=== PATIENT | female | born 1970 | race Caucasian/White ===

== ENCOUNTER 2018-11-17 05:58 | Emergency (ER) | payer OTHER ==
[~2018-11-17] VITALS: Ht 154.9 cm; Wt 83.9 kg
[~2018-11-17 05:58] MED LIST: AZITHROMYCIN250 MG PO; AZULFIDINE500 MG PO; BACTRIM DS TAB1 EACH PO; BENTYL 10 MG CA10 M1 PO; BUTALB-APAP-CA1 EACH PO; CELEXA40 MG PO; HYDROXYCHLOROQ200 M1 PO; KEFLEX500 M1 PO; KINERET100 MG/0.6 SUBQ; METHOTREXATE 22.5 MG PO; MOBIC7.5 MG PO; NEURONTIN 300M300 M2 PO; PERCOCET 5-3251 EACH PO; PREDNISONE 20 M20 M1 PO; PREDNISONE50 MG PO; PROAIR HFA8.5 GM INH; PROTONIX 20 MG20 MG; TUSSIONEX PENN115 ML PO; ZOFRAN ODT4 MG SUBLING
[2018-11-17 06:05] VITALS: BP 150/96
[2018-11-17] MEDS ORDERED: NEURONTIN 300M300 M2 PO (06:35)
[2018-11-17] MEDS ORDERED: PREDNISONE 20 M20 MG PO (06:35)
[2018-11-17] MEDS ORDERED: PROTONIX 20 MG20 MG PO (06:35)
[2018-11-17] MEDS ORDERED: MOBIC7.5 MG PO (06:35)
== END 2018-11-17 06:43 | disposition home or self-care (01) ==
LOC: ER 05:58
DX: R05 Cough (principal); R06.02 Shortness of breath; I10 Essential (primary) hypertension; M79.7 Fibromyalgia; F17.210 Nicotine dependence, cigarettes, uncomplicated; Z88.0 Allergy status to penicillin; Z88.5 Allergy status to narcotic agent

== ENCOUNTER 2021-04-29 18:32 | Inpatient (IN) | payer OTHER ==
[~2021-04-29] VITALS: Ht 162.6 cm; Wt 88.5 kg
--- NOTE | ~2021-04-29 | EMS ---
[facility] [address] [place] [address] EMS Patient Care Report Name: JAVI WHITMORE Room #: 356-P ADM IN M.R.#: [id number] Admission: 04/29/21 Attend Phys: Tessy Logan MD Discharge: Date of : 74 Report #: [id number] THIS REPORT FOR: //name// Report Transmitted: 05/01/2021 11:18 EMS Care Summary [place], [place]/[facility] Incident [id number] @ 04/29/2021 18:04 Incident Location [address] [address] Patient JAVI WHITMORE Female, 50 Years 1970 Patient Address Patient History Other,Novel Coronavirus (COVID-19), Patient Allergies Codeine,Penicillin allergy,Morphine, Patient Medications Losartan, Propranolol, Pantoprazole, Gabapentin, Chief Complaint COVID Disposition Transported No Lights/[place] Dispatch Reason Breathing Problem Transported To [facility] Narrative RESPONDED TO BREATHING PROBLEMS AT APARTMENT. UPON ARRIVAL PT FOUND SITTING ON OUTSIDE STEPS ALERT AND ORIENTED. PT REPORTS TESTING POSITIVE FOR COVID ON WEDNESDAY BUT HAS BEEN NAUSEATED WITH VOMITING SINCE WEDNESDAY. PT REPORTS SOME SOA WHEN EXERTING HERSELF BUT MOVES AIR EFFECTIVELY. PT WALKED TO COT AND SEATBELTS APPLIED. PT VITALS OBTAINED. PT TRANSPORTED TO [facility] WITH NO [facility] [address] [place] [address] EMS Patient Care Report Name: JAVI WHITMORE Room #: 356-P ADM IN M.R.#: [id number] Admission: 04/29/21 Attend Phys: Tessy Logan MD Discharge: Date of : 74 Report #: [id number] CHANGES. PT SCOOTED TO BED AND HANDRAILS UP. REPORT GIVEN TO NURSE. Initial Vitals @18:22P: 103,R: 20,BP: 131/78,CO: 8,SpO2: 95, @18:18P: 105,R: 20,BP: 134/71,Pain: 0/10,GCS: 15,CO: 8,SpO2: 97,Revised Trauma: 12, Assessments @18:23MENTAL:Person Oriented,Time Oriented,Place Oriented,Event Oriented,SKIN:Hot,HEENT:Head/Face: No Abnormalities,Eyes: No Abnormalities,Neck/Airway: No Abnormalities,LUNG SOUNDS:General: Nausea,General: Vomiting,Left Upper: No Abnormalities,Right Upper: No Abnormalities,Left Lower: No Abnormalities,Right Lower: No Abnormalities,ABDOMEN:General: Nausea,General: Vomiting,Left Upper: No Abnormalities,Right Upper: No Abnormalities,Left Lower: No Abnormalities,Right Lower: No Abnormalities,PELVIS//GI:No Abnormalities,EXTREMITIES:Left Arm: No Abnormalities,Right Arm: No Abnormalities,Left Leg: No Abnormalities,Right Leg: No Abnormalities,PULSE:NEURO:No Abnormalities, Impression COVID-19 - Confirmed by testing Procedures @18:23ALS Assessment Timeline 17:59,Call Received 17:59,Dispatch Notified 18:04,Dispatched 18:04,En Route 18:09,On Scene 18:11,At Patient 18:18,Depart Scene 18:18,BP: 134/71 M,PULSE: 105,RR: 20 R,SPO2: 97 Ox,ETCO2: ,BG: ,PAIN: 0,GCS: 15, 18:22,BP: 131/78 M,PULSE: 103,RR: 20 R,SPO2: 95 Ox,ETCO2: ,BG: ,PAIN: ,GCS: , 18:23,ALS Assessment, 18:26,At Destination 18:36,Call Closed Disclaimer v1.1 Copyright 2020 [employer] This EMS Care Summary contains data elements from the applicable legal record (which may be displayed differently). It is designed to provide pertinent information for the following purposes: continuity of care, clinical quality, and state data reporting. The complete legal record is available to ED staff [address] [address] EMS Patient Care Report Name: JAVI WHITMORE Room #: 356-P ADM IN ..#: [id number] Admission: 04/29/21 Attend Phys: Tessy Logan MD Discharge: Date of : 74 Report #: [id number] and administrators of the receiving hospital in [facility]s Patient Tracker. All data is provided "as is."
--- NOTE | ~2021-04-29 | EMS ---
[facility] [address] [place] [address] EMS Patient Care Report Name: JAVI WHITMORE Room #: 170-4 ADM IN M.R.#: [id number] Admission: 04/29/21 Attend Phys: Tessy Logan MD Discharge: Date of : 74 Report #: [id number] THIS REPORT FOR: //name// Report Transmitted: 04/30/2021 09:21 EMS Care Summary [place], [place]/[facility] Incident [id number] @ 04/29/2021 18:04 Incident Location [address] [address] Patient JAVI WHITMORE Female, 50 Years 1970 Patient Address Patient History Other,Novel Coronavirus (COVID-19), Patient Allergies Codeine,Penicillin allergy,Morphine, Patient Medications Losartan, Propranolol, Pantoprazole, Gabapentin, Chief Complaint COVID Disposition Transported No Lights/[place] Dispatch Reason Breathing Problem Transported To [facility] Narrative RESPONDED TO BREATHING PROBLEMS AT APARTMENT. UPON ARRIVAL PT FOUND SITTING ON OUTSIDE STEPS ALERT AND ORIENTED. PT REPORTS TESTING POSITIVE FOR COVID ON WEDNESDAY BUT HAS BEEN NAUSEATED WITH VOMITING SINCE WEDNESDAY. PT REPORTS SOME SOA WHEN EXERTING HERSELF BUT MOVES AIR EFFECTIVELY. PT WALKED TO COT AND SEATBELTS APPLIED. PT VITALS OBTAINED. PT TRANSPORTED TO [facility] WITH NO [facility] [address] [place] [address] EMS Patient Care Report Name: JAVI WHITMORE Room #: 170-4 ADM IN M.R.#: [id number] Admission: 04/29/21 Attend Phys: Tessy Logan MD Discharge: Date of : 74 Report #: [id number] CHANGES. PT SCOOTED TO BED AND HANDRAILS UP. REPORT GIVEN TO NURSE. Initial Vitals @18:22P: 103,R: 20,BP: 131/78,CO: 8,SpO2: 95, @18:18P: 105,R: 20,BP: 134/71,Pain: 0/10,GCS: 15,CO: 8,SpO2: 97,Revised Trauma: 12, Assessments @18:23MENTAL:Event Oriented,Place Oriented,Time Oriented,Person Oriented,SKIN:Hot,HEENT:Head/Face: No Abnormalities,Eyes: No Abnormalities,Neck/Airway: No Abnormalities,LUNG SOUNDS:General: Vomiting,General: Nausea,Left Upper: No Abnormalities,Right Upper: No Abnormalities,Left Lower: No Abnormalities,Right Lower: No Abnormalities,ABDOMEN:General: Vomiting,General: Nausea,Left Upper: No Abnormalities,Right Upper: No Abnormalities,Left Lower: No Abnormalities,Right Lower: No Abnormalities,PELVIS//GI:No Abnormalities,EXTREMITIES:Left Arm: No Abnormalities,Right Arm: No Abnormalities,Left Leg: No Abnormalities,Right Leg: No Abnormalities,PULSE:NEURO:No Abnormalities, Impression COVID-19 - Confirmed by testing Procedures @18:23ALS Assessment Timeline 17:59,Call Received 17:59,Dispatch Notified 18:04,Dispatched 18:04,En Route 18:09,On Scene 18:11,At Patient 18:18,Depart Scene 18:18,BP: 134/71 M,PULSE: 105,RR: 20 R,SPO2: 97 Ox,ETCO2: ,BG: ,PAIN: 0,GCS: 15, 18:22,BP: 131/78 M,PULSE: 103,RR: 20 R,SPO2: 95 Ox,ETCO2: ,BG: ,PAIN: ,GCS: , 18:23,ALS Assessment, 18:26,At Destination 18:36,Call Closed Disclaimer v1.1 Copyright 2020 [employer] This EMS Care Summary contains data elements from the applicable legal record (which may be displayed differently). It is designed to provide pertinent information for the following purposes: continuity of care, clinical quality, and state data reporting. The complete legal record is available to ED staff [address] [address] EMS Patient Care Report Name: JAVI WHITMORE Room #: 170-4 ADM IN [facility]#: [id number] Admission: 04/29/21 Attend Phys: Tessy Logan MD Discharge: Date of : 74 Report #: [id number] and administrators of the receiving hospital in [facility]'s Patient Tracker. All data is provided "as is."
[2021-04-29 18:32] VITALS: BP 143/76
[~2021-04-29 18:32] MED LIST changes: +PREDNISONE 20 M20 MG PO; +PROTONIX 20 MG20 MG PO
[2021-04-29 18:56] LABS: ABSOLUTE NEUTROPHILS 3.3 thou/uL (1.4-8.2); BASOPHILS 0.8 % (0.0-2.0); EOSINOPHILS 0.4 % (0.0-3.0); HEMATOCRIT 38.6 % (37.0-47.0); HEMOGLOBIN 13.2 gm/dL (12.0-15.0); LYMPHOCYTES 20.8 % (24.0-44.0); MCH 33.2 pg (26.0-34.0); MCHC 34.3 g/dL (28.0-37.0); MCV 96.8 fL (80.0-100.0); MONOCYTES 7.3 % (1.0-8.0); PLATELET COUNT 158 thou/uL (150-400); POLYS 70.7 % (36.0-66.0); RBC 3.98 mil/uL (4.20-5.00); RDW 12.9 % (10.5-14.5); WBC 4.7 thou/uL (4.0-11.0)
[2021-04-29 19:07] LABS: CREATININE 0.8 mg/dL (0.6-1.0); POTASSIUM 3.8 mmol/L (3.5-5.1)
[2021-04-29 19:12] LABS: ALBUMIN 3.1 g/dL (3.4-5.0); TOTAL BILIRUBIN 0.3 mg/dL (0.2-1.0); TOTAL PROTEIN 7.3 g/dL (6.4-8.2)
[2021-04-29 20:15] LABS: URINE BILIRUBIN NEGATIVE (Negative); URINE BLOOD NEGATIVE (Negative); URINE CLARITY CLEAR; URINE COLOR YELLOW; URINE GLUCOSE-RANDOM* 1+ (Negative); URINE KETONES NEGATIVE (Negative); URINE LEUKOCYTES-REFLEX NEGATIVE (Negative); URINE NITRITE-REFLEX NEGATIVE (Negative); URINE PROTEIN (DIPSTICK) NEGATIVE (Negative); URINE UROBILINOGEN 0.2 E.U./dl (0.2-1.0)
[2021-04-30] MEDS ORDERED: PROAIR HFA8.5 GM INH (00:39)
[2021-04-30] MEDS ORDERED: PROTONIX40 M2 PO (00:40)
[2021-04-30] MEDS ORDERED: NEURONTIN 300M300 M2 PO (00:41)
[2021-04-30] MEDS ORDERED: PROPRANOLOL 20M20 M1 PO (00:42)
[2021-04-30] MEDS ORDERED: COZAAR 25 MG TA25 M2 PO (00:42)
--- NOTE | 2021-04-30 07:48 | EKG ---
[address] [place] [address] ELECTROCARDIOGRAM REPORT Name: JAVI WHITMORE Room #: 170-4 ADM IN M.R.#: [id number] Admission: 04/29/21 Attend Phys: Richard Yarbrough MD Discharge: Date of : 74 Report #: [id number] [facility] ED Test Date: 2021-04-29 Test Time: 18:42:42 Pat Name: JAVI WHITMORE Department: Room: 170 Gender: F Stave Cutting Supervisor: sotero : 1970 Requested By: Devante Fine Order Number: [id number] : Flaquito Marin Measurements Intervals [place] Rate: 103 P: 50 WV: 134 QRS: 9 QRSD: 97 T: 4 QT: 370 QTc: 485 Interpretive Statements Sinus tachycardia Q's V1-2 No previous ECG available for comparison Electronically Signed On 04-30-2021 7:48:24 CDT by Flaquito Marin [email or web address] <ELECTRONICALLY SIGNED> By: Flaquito Marin MD, [facility] 04/30/21 [id number] Flaquito Marin MD, FACC /EPI
[2021-04-30 09:07] LABS: HEMOGLOBIN 12.8 gm/dL (12.0-15.0); MCH 33.2 pg (26.0-34.0); MCHC 34.6 g/dL (28.0-37.0); RBC 3.86 mil/uL (4.20-5.00); RDW 12.6 % (10.5-14.5); WBC 3.4 thou/uL (4.0-11.0)
[2021-04-30 09:14] LABS: CALCIUM 7.7 mg/dL (8.5-10.1); CREATININE 0.8 mg/dL (0.6-1.0); POTASSIUM 3.9 mmol/L (3.5-5.1)
[2021-04-30 09:23] LABS: ALBUMIN 2.9 g/dL (3.4-5.0); DIRECT BILIRUBIN 0.1 mg/dL (<0.1-0.2); TOTAL BILIRUBIN 0.4 mg/dL (0.2-1.0); TOTAL PROTEIN 6.9 g/dL (6.4-8.2)
[2021-04-30] MEDS ORDERED: SULFAZINE500 MG PO (14:35)
--- NOTE | 2021-04-30 17:42 | NUR ---
50-year-old female presented to the ED on 04-29-21 for nausea and vomiting and social shortness of air. Patient reports diagnosed with Covid on Wednesday04-26-21. The patient reports to ID that he has a past medical history of adult onset Still's disease, asthma, hypertension, fibromyalgia, neuropathy and ulcerative colitis. She is unvaccinated secondary to her autoimmune disorder. ID NOW in the ED shows positive results on 04-29-21. The patient has been admitted with COVID pneumonia, N/V, Lactic Acidosis, Asthma, Transaminitis, Still's disease, HTN, and Ulcerative Colitis. At present the patient remains on 2 liter per NC and sats remain above 95%. Per ED assessments and MD interaction the patient remains A&O x4. The patient lists spouse Dago Hood at [phone] as her next of kin at [phone]. Attempted to reach spouse x2 without success. Although no PCP is listed previous visit to [facility] note Aviation Engineer of Dr. Dante Smith . As plan of care evolves CM will assist for discharge needs as they present.
[2021-04-30 19:46] VITALS: BP 124/65
[2021-04-30 21:15] VITALS: BP 130/75
[2021-04-30 21:30] VITALS: BP 122/77
[2021-05-01 02:10] LABS: GLYCOHEMOGLOBIN (HGB A1C) 8.7 % (4.8-5.6)
[2021-05-01 04:04] LABS: ALBUMIN 2.9 g/dL (3.4-5.0); ANION GAP 14 mmol/L (7-16); BUN 9 mg/dL (7-18); CALCIUM 8.2 mg/dL (8.5-10.1); CHLORIDE 102 mmol/L (98-107); CO2 24 mmol/L (21-32); CREATININE 0.8 mg/dL (0.6-1.0); DIRECT BILIRUBIN < 0.1 mg/dL (<0.1-0.2); GLUCOSE 247 mg/dL (74-106); PHOSPHORUS 2.6 mg/dL (2.6-4.7); POTASSIUM 3.4 mmol/L (3.5-5.1); SGOT 68 U/L (15-37); SGPT 143 U/L (14-59); SODIUM 140 mmol/L (136-145); TOTAL BILIRUBIN 0.4 mg/dL (0.2-1.0)
[2021-05-01 04:20] VITALS: BP 112/64
[2021-05-01 07:25] VITALS: BP 138/83
--- NOTE | 2021-05-01 10:34 | HC ---
[facility] [place] [address] [place] [address] CONSULTATION Name: JAVI WHITMORE Room #: 356-P ADM IN M.R.#: [id number] Admission: 04/29/21 Attend Phys: Tessy Logan MD Discharge: Date of : 74 Report #: [id number] THIS REPORT FOR: cc: NAEL - No family physician/PCP NAEL - No family physician/PCP Homer Noble MD ~ DATE OF SERVICE: 04/30/2021 INFECTIOUS DISEASE CONSULTATION ATTENDING PHYSICIAN: ____. REASON FOR EVALUATION: COVID-19 infection, complicated by pneumonitis, respiratory failure. HISTORY OF PRESENT ILLNESS: Chart reviewed and the patient examined. This is a 50-year-old woman with history of hypertension, Still's disease and ill for the last roughly 8 days and developed intractable GI-related complaints with nausea, emesis. Subsequently, developed loss of taste and smell. At that point was retested for coronavirus, which was positive 3 days prior to admission, subsequently developed dyspnea with cough, somewhat productive. She presented to the Emergency Room. Evaluation noted elevated liver function tests, AST of 133, ALT of 180, marked hyperglycemia. Chest x-ray showed lower extremity opacities. Lactic acid was elevated at 3.0. Procalcitonin less than 0.05. Urinalysis otherwise unremarkable. Blood cultures collected at time of admission are sterile thus far. She was noted to have a low-grade temperature elevation. Otherwise, hemodynamically relatively stable. She is currently requiring supplemental oxygen 2 liters per nasal cannula. ALLERGIES: Listed to PENICILLINS, MORPHINE, HYDROCODONE. CURRENT MEDICATIONS: Include sulfasalazine, enoxaparin, cholecalciferol, losartan, propranolol, ascorbic acid, dexamethasone, famotidine, zinc, alprazolam, gabapentin, levofloxacin. PAST MEDICAL HISTORY: As described above, history of Still's disease, hypertension, fibromyalgia, neuropathy, IBD. SOCIAL HISTORY: Smokes cigarettes. No ethanol or illicit drug use. FAMILY HISTORY: Noncontributory. REVIEW OF SYSTEMS: Otherwise, GI signs and symptoms have improved. PHYSICAL EXAMINATION: GENERAL: She appears ill, not overtly toxic, moderate distress. She is [address] [address] CONSULTATION Name: JAVI WHITMORE Room #: 356-P [facility] IN M.R.#: [id number] Admission: 04/29/21 Attend Phys: Tessy Logan MD Discharge: Date of : 74 Report #: [id number] generally lucid, reasonably well nourished. VITAL SIGNS: Temperature 99.8, pulse 80, respirations 29, blood pressure 117/69. SKIN: Warm, dry, no rashes. HEENT: Normocephalic. Extraocular muscles intact. Nasal cannula in place. NECK: Supple. LUNGS: Bilateral scattered coarse breath sounds. HEART: Regular. I do not appreciate a murmur. ABDOMEN: Somewhat distended, otherwise soft, nontender. EXTREMITIES: No cyanosis. GENITOURINARY AND RECTAL: Deferred. LABORATORY DATA: Ferritin elevated at 2034. LDH 422. CRP of 36.9. D-dimer 1.21. Most recent CBC: White count of 3.4, H and H 12.8 and 37.0, platelets of 159. AST of 114, ALT of 166, albumin 2.9, total protein 6.9. ASSESSMENT AND PLAN: COVID-19 infection, complicated by pneumonitis with respiratory failure, also likely has diabetes mellitus. We will check hemoglobin A1c ____, elevated liver function tests with lactic acidemia, likely all secondary to the COVID. We will do additional diagnostic testing. We will continue empiric therapy with Levaquin ____ dexamethasone. We will add remdesivir and see how she does over the course of the next 24 hours, consider Actemra if would worsen. She remains quite tenuous. <ELECTRONICALLY SIGNED> By: Homer Noble MD 05/01/21 [id number] Homer Noble MD /nt
[2021-05-01 11:48] VITALS: BP 114/66
[2021-05-01 12:07] LABS: HAV IgM AB (ANTI-HAV IgM) Negative (Negative); HEPATITIS B SURFACE AG Negative (Negative); HEPATITIS C VIRUS AB <0.1 (0.0-0.9)
--- NOTE | 2021-05-01 13:43 | NUR ---
INITIAL ASSESSMENT: Received consult. TIFFANY reviewed chart and spoke with nursing and attending physician. Pt was admitted from home due to COVID. Pt placed in Enhanced Isolation. Pt is afebrile and on 2L of O2. Pt is on IV abx and IV steorids. Remdesivir has been started. TIFFANY spoke with pt via phone. Introduced role of SW. Pt is alert/orientated x 4. Pt reports she lives at home with her fiance, Dago, who also has COVID. Prior to admission, pt was independent with ADLs. No use of DME for ambulation. Pt does have an inhaler to use PRN due to asthma. No hx of services or post-acute placement. Pt goes to [facility] for primary care and sees Lizabeth Salter NP. Pt is employed for [employer] and states that she signed up for insurance during the open enrollment period earlier this year and is unsure if she has active insurance coverage at this time. Pt states she is trying to get in touch with the HR dept, however many of the employees are out with COVID. Pt states she will try to contact someone at the corporate office. Plan is for pt to discharge to her sister's home when medically stable. [employer] to screen pt for possible [place] due [place]. TIFFANY is following to assist as needed with discharge planning.
[2021-05-01 17:30] VITALS: BP 134/67
[2021-05-01 19:51] VITALS: BP 109/66
[2021-05-02 04:26] LABS: HEMATOCRIT 37.5 % (37.0-47.0); HEMOGLOBIN 12.8 gm/dL (12.0-15.0); MCH 33.6 pg (26.0-34.0); MCHC 34.2 g/dL (28.0-37.0); MCV 98.4 fL (80.0-100.0); RBC 3.81 mil/uL (4.20-5.00); WBC 6.7 thou/uL (4.0-11.0)
[2021-05-02 04:52] VITALS: BP 110/68
[2021-05-02 04:59] LABS: ALBUMIN 2.6 g/dL (3.4-5.0); ANION GAP 12 mmol/L (7-16); BUN 10 mg/dL (7-18); CALCIUM 8.1 mg/dL (8.5-10.1); CHLORIDE 102 mmol/L (98-107); CO2 24 mmol/L (21-32); CREATININE 0.8 mg/dL (0.6-1.0); DIRECT BILIRUBIN < 0.1 mg/dL (<0.1-0.2); GLUCOSE 281 mg/dL (74-106); PHOSPHORUS 2.9 mg/dL (2.6-4.7); POTASSIUM 3.7 mmol/L (3.5-5.1); SGOT 29 U/L (15-37); SGPT 96 U/L (14-59); SODIUM 138 mmol/L (136-145); TOTAL BILIRUBIN 0.4 mg/dL (0.2-1.0); TOTAL PROTEIN 6.5 g/dL (6.4-8.2)
[2021-05-02 07:03] VITALS: BP 124/78
[2021-05-02 11:07] VITALS: BP 113/68
--- NOTE | 2021-05-02 14:34 | NUR ---
SW reviewed chart and spoke with nursing and attending physician. Pt remains in Enhanced Isolation due to COVID. Pt is afebrile and on 2-3L of O2. PT is on IV abx and IV steroids. Pt to complete course of Remdesivir. No weekend discharge planned. Pt will need rest/exercise oximetry prior to discharge to determine home O2 needs. TIFFANY is following to assist as needed with discharge planning.
[2021-05-02 15:26] VITALS: BP 113/73
[2021-05-02 19:26] VITALS: BP 109/66
[2021-05-03 04:19] VITALS: BP 127/84
--- NOTE | 2021-05-03 04:22 | NUR ---
PT IS RESTING QUIETLY. MEDICATED WITH XANANX AND COUGH MEDICINE. NO C/O PRESENTLY. NO S/S DISTRESS. SAT 95% ON 2.5LNC.
[2021-05-03 05:17] LABS: HEMATOCRIT 35.5 % (37.0-47.0); HEMOGLOBIN 12.4 gm/dL (12.0-15.0); MCH 33.8 pg (26.0-34.0); MCHC 34.8 g/dL (28.0-37.0); MCV 97.2 fL (80.0-100.0); RBC 3.66 mil/uL (4.20-5.00); RDW 12.8 % (10.5-14.5); WBC 5.2 thou/uL (4.0-11.0)
[2021-05-03 05:29] LABS: ALBUMIN 2.5 g/dL (3.4-5.0); CALCIUM 7.6 mg/dL (8.5-10.1); CREATININE 0.7 mg/dL (0.6-1.0); DIRECT BILIRUBIN 0.1 mg/dL (<0.1-0.2); PHOSPHORUS 2.8 mg/dL (2.5-4.9); POTASSIUM 3.4 mmol/L (3.5-5.1); TOTAL BILIRUBIN 0.3 mg/dL (0.2-1.0); TOTAL PROTEIN 6.5 g/dL (6.4-8.2)
[2021-05-03 07:08] VITALS: BP 133/88
--- NOTE | 2021-05-03 07:50 | NUR ---
PT PROGRESSING TOWARDS D/C GOALS. VSS . SATS WNL OVERNIGHT ON 2.5LNC. MEDICATED WITH COUGH MEDICINE AND XANAX WITH ADEQUATE RELIEF OBTAINED. PT STATED SHE SLEPT WELL.
[2021-05-03 11:09] VITALS: BP 122/77
[2021-05-03 15:12] VITALS: BP 109/68
[2021-05-03 20:08] VITALS: BP 107/67
--- NOTE | 2021-05-03 22:10 | NUR ---
PT ALERT AND ORIENTED X4. VSS AFEBRILE. COUGH MEDICAINE GIVEN AND ANXIETY MEDS GIVEN. IV ABX INFUSING R AC. NO S/S DISTRESS. WILL CONTINUE TO DO DIABETIC TEACHING WITH PT.
[2021-05-04 03:25] VITALS: BP 115/75
[2021-05-04 05:19] LABS: ABSOLUTE NEUTROPHILS 4.9 thou/uL (1.4-8.2); BASOPHILS 0.5 % (0.0-2.0); EOSINOPHILS 0.1 % (0.0-3.0); HEMATOCRIT 37.1 % (37.0-47.0); HEMOGLOBIN 12.9 gm/dL (12.0-15.0); LYMPHOCYTES 23.1 % (24.0-44.0); MCH 33.3 pg (26.0-34.0); MCHC 34.8 g/dL (28.0-37.0); MCV 95.9 fL (80.0-100.0); MONOCYTES 12.8 % (1.0-8.0); PLATELET COUNT 238 thou/uL (150-400); POLYS 63.5 % (36.0-66.0); RBC 3.87 mil/uL (4.20-5.00); RDW 12.6 % (10.5-14.5); WBC 7.8 thou/uL (4.0-11.0)
--- NOTE | 2021-05-04 05:48 | NUR ---
PT PROGRESSING TOWARDS D/C GOALS. VSS AFEBRILE. NO C/O SOA OR PAIN TONIGHT. MEDICAED FOR ANXIETY, NAUSEA AND COUGH HIS MORNING. SHE IS RES[facility]ING [facility] PRESENTLY. NO S/S DISTRESS.
[2021-05-04 06:17] LABS: ALBUMIN 2.5 g/dL (3.4-5.0); CALCIUM 8.1 mg/dL (8.5-10.1); CREATININE 0.6 mg/dL (0.6-1.0); DIRECT BILIRUBIN 0.1 mg/dL (<0.1-0.2); PHOSPHORUS 3.9 mg/dL (2.5-4.9); POTASSIUM 3.4 mmol/L (3.5-5.1); TOTAL BILIRUBIN 0.3 mg/dL (0.2-1.0); TOTAL PROTEIN 6.7 g/dL (6.4-8.2)
[2021-05-04 07:27] VITALS: BP 119/81
[2021-05-04 11:11] VITALS: BP 130/86
[2021-05-04] MEDS ORDERED: VITAMIN D325 MC2 PO (12:21)
[2021-05-04] MEDS ORDERED: DEXAMETHASO0.1 MG/M1 PO (12:21)
[2021-05-04] MEDS ORDERED: VITAMIN C1000 MG PO (12:21)
[2021-05-04] MEDS ORDERED: LEVOFLOXACIN750 MG PO (12:22)
[2021-05-04 15:11] VITALS: BP 134/90
[2021-05-04 15:12] VITALS: BP 130/86
--- NOTE | 2021-05-04 16:36 | NUR ---
RN ASSUMED PT'S CARE AT 0700AM, PT IS A&OX4, PT'S SOB AND N/V HAVE INPROVED, PT IS ON O2 3L/MIN/NC AND PT'S O2SAT STAYS AT 92-96%, PT'S VS ARE STABLE BY THIS TIME, RN RECEIVED ORDER TO DC PT TO HOME O2, RN HAS CALLED O2 COMPANY TO GET O2 TANK TO HOSPITAL FOR PT AND SET UP O2 TO SEND PT'S HOME, RN HAS CONTACTED PT'S SISITER ABOUT PT'S DC PLAN AND O2.
--- NOTE | 2021-05-04 19:13 | NUR ---
RN HAS CALLED HOSPITAL DR TO REPORT PT'S BS 292 AT DINNER TIME, PT DC TO HOME TO NEED HOME HEALTH CARE SERVICE TO MONITOR PT'S O2 AND BS , AND TEACH HOW TO USE INSULIN, HISPITAL DR ASK RN TO HOLD DC HOME TODAY, RN HAS EXPLAINED TO PT AND PT'S FAMILY, BOTH UNDERSTAND WELL . RN HAS REPORTED TO NEXT SHIFT TO FOLLOW UP DC PLAN TOMORROW.
[2021-05-04 20:55] VITALS: BP 139/83
[2021-05-05 03:08] VITALS: BP 124/77
[2021-05-05 05:34] LABS: ALBUMIN 2.7 g/dL (3.4-5.0); CALCIUM 8.1 mg/dL (8.5-10.1); CREATININE 0.6 mg/dL (0.6-1.0); DIRECT BILIRUBIN 0.1 mg/dL (<0.1-0.2); PHOSPHORUS 4.3 mg/dL (2.5-4.9); POTASSIUM 3.5 mmol/L (3.5-5.1); TOTAL BILIRUBIN 0.4 mg/dL (0.2-1.0); TOTAL PROTEIN 6.9 g/dL (6.4-8.2)
--- NOTE | 2021-05-05 05:52 | NUR ---
PT PROGRESSING TOWARDS D/C GOALS. VSS AFEBRILE TIS AM. SATS 965 ON 2LNC. NO C/O PAIN. NO S/S DISTRESS.
[2021-05-05 11:36] VITALS: BP 110/66
--- NOTE | 2021-05-05 12:38 | NUR ---
DISCHARGE NOTE: TIFFANY reviewed chart and spoke with nursing and attending physician. Pt remains in Enhanced Isolation due to COVID. Pt is medically stable to discharge home today. Rest/exercise oximetry completed yesterday. Pt requires 2L at rest and 4L with activity. Script obtained for home O2. TIFFANY faxed Health Resource Guide, [facility] list and info regarding [facility] to the nurses station to provide pt with her discharge ppwk. TIFFANY spoke with pt via phone to discuss discharge plan. Pt is aware and in agreement with discharge plan. Pt is going to be staying with her sister for awhile. Her sister's home address: [address] [place] [address], [facility] [address]. SW encouraged pt to establish primary care. Pt verbalized understanding and states she is familiar with the [facility]. SW offered to have meds filled at [facility]. Pt agreeable. Scripts to be sent to the pharmacy once physician finalizes the med list. Pt states her family will provide transportation home when discharged. Pt denies having any additional SW needs. TIFFANY updated pt's nurse. TIFFANY faxed face sheet to the outpatient pharmacy. Spoke with Jazmin in the pharmacy. TIFFANY notified Director of Case Mgmt of [facility] for scripts. Awaiting total at this time. Pharmacy to contact the nurses station when meds are ready to be picked up. No additional SW needs identified at this time, but is available to assist should needs arise.
[2021-05-05] MEDS ORDERED: SULFASALAZINE500 M5 PO (12:57)
[2021-05-05] MEDS ORDERED: VENTOLIN HFA INH8 GM INH (12:57)
[2021-05-05] MEDS ORDERED: GLUCOTROL XL5 MG PO (12:57)
[2021-05-05] MEDS ORDERED: ASA81BEC PO (12:58)
--- NOTE | 2021-05-05 13:17 | NUR ---
Received consult for diet education for pt with newly diagnosed diabetes, A1C of 8.7. Pt admitted with COVID so unable to have [id number] conversation. Have printed education materials from the Nutrition Care Manual on diabetes and RN provided to pt with brief review of information. Pt has been instructed to contact Endocronologist and/or an outpatient dietitian following discharge from hospital and recovery from COVID.
[2021-05-05 14:16] VITALS: BP 130/86
== END 2021-05-05 15:41 | disposition home or self-care (01) | DRG 177 ==
LOC: ER 18:32 → EROBS 21:00 → 3W 04-30 21:20
PROVIDERS: Hospitalist; Nurse Practitioner; Nurse Practitioner Family; Specialist; ADMIT Internal Medicine; ATTEND Internal Medicine
PROC: XW033E5 Introduction of Remdesivir Anti-infective into Peripheral Vein, Percutaneous Approach, New Technology Group 5 (ICD-10-PCS; principal; 2021-04-30)
DX: U07.1 COVID-19 (principal); J12.82 Pneumonia due to coronavirus disease 2019; J96.01 Acute respiratory failure with hypoxia; E87.2 Acidosis; K51.90 Ulcerative colitis, unspecified, without complications; I10 Essential (primary) hypertension; R74.01 Elevation of levels of liver transaminase levels; M08.20 Juvenile rheumatoid arthritis with systemic onset, unspecified site; E66.01 Morbid (severe) obesity due to excess calories; G62.9 Polyneuropathy, unspecified; J45.909 Unspecified asthma, uncomplicated; M79.7 Fibromyalgia; Z79.899 Other long term (current) drug therapy; Z88.0 Allergy status to penicillin; Z88.5 Allergy status to narcotic agent; Z88.8 Allergy status to other drugs, medicaments and biological substances; Z98.891 History of uterine scar from previous surgery; Z87.891 Personal history of nicotine dependence; Z68.33 Body mass index [BMI] 33.0-33.9, adult
CPT/HCPCS: 10879